=== PATIENT | male | born 1965 | race Caucasian/White ===

== ENCOUNTER 2023-11-28 17:01 | Emergency (ER) | payer OTHER, SELFPAY ==
[2023-11-28 17:01] VITALS: BMI 46.9
[2023-11-28 17:05] VITALS: BP 154/87
[2023-11-28 20:42] LABS: % Basophils 0.4 % (0-2); % Eosinophils 0.3 % (0-6); % Immature Granulocytes 0.4 % (0-0.5); % Lymphocytes 13.3 % (20.5-51.1); % Monocytes 4.2 % (1.7-9.3); % Neutrophils 81.4 % (42.2-75.2); Absolute Lymphocytes 1.4 10^3/uL (1.2-3.4); Absolute Monocytes 0.4 10^3/uL (0.1-0.6); Absolute Neutrophils 8.5 10^3/uL (1.4-6.5); Hematocrit 41.2 % (39.0-52.0); Hemoglobin 13.3 g/dL (13.0-18.0); Mean Corp Hgb Conc. 32.3 g/dL (33.0-37.0); Mean Corpuscular Hgb 22.4 pg (27.0-31.0); Mean Corpuscular Volume 69.5 fL (80.0-94.0); Mean Platelet Volume 10.6 fL (7.4-10.4); Nucleated Red Blood Cells % 0 % (-); Platelet Count 234 10^3/uL (130-400); Red Blood Cell Count 5.93 10^6/uL (4.70-6.10); Red Cell Dist. Width 16.9 % (11.5-14.5); White Blood Cell Count 10.4 10^3/uL (4.8-10.8)
[2023-11-28 20:44] LABS: Urine Albumin Negative (Neg - Trace); Urine Bilirubin Negative (Negative); Urine Character Clear (Clear); Urine Color Yellow; Urine Glucose Negative (Negative); Urine Ketone Negative (Negative); Urine Leukocyte Negative (Negative); Urine Nitrite Negative (Negative); Urine Occult Blood Negative (Negative); Urine Urobilinogen Negative (Neg - 1+)
[2023-11-28 21:00] LABS: ALT (SGPT) 26 U/L (0-50); AST (SGOT) 27 U/L (17-59); Albumin 4.4 g/dl (3.5-5.0); Alkaline Phosphatase 77 U/L (38-126); Blood Urea Nitrogen 31 mg/dl (9-20); Calcium 10.2 mg/dl (8.4-10.2); Carbon Dioxide 26 mmol/L (22-30); Chloride 102 mmol/L (98-107); Estimated Creatinine Clearance 91 ml/min; Glucose 116 mg/dl (70-99); Potassium 3.7 mmol/L (3.5-5.1); Sodium 136 mmol/L (135-145); Total Bilirubin 0.7 mg/dl (0.2-1.3); Total Protein 7.3 g/dl (6.3-8.2); eGFR > 60.00
--- NOTE | 2023-11-28 21:07 | ED.GENMED ---
History of Present Illness
General
Chief Complaint: Back Pain
Source: patient
Exam Limitations: none
Time Seen by Provider: 11/28/23 20:43
Nursing documentation reviewed up to this point in time: agreed with
Travel History
Have you had any contact with someone who has COVID-19?: No
Do you have any symptoms of coronavirus? Fever > 100 degrees, chills, cough, shortness of breath, sore throat, loss of taste or smell, muscle aches, or headache?: No
History of Present Illness
History of Present Illness:
58-year-old male presents emergency department complaining of left-sided low back pain, left testicular pain. Symptoms ongoing for 3 to 4 days. No difficulty urinating.
Past History
Past History
ED Past Medical History: HTN and NIDDM
ED Past Surgical History: Cholecystectomy, Tonsilectomy and Other (Eyes)
Social History
Tobacco: Non-smoker
Alcohol: None
Drug: None
Personal:
Living: with family
Review of Systems
Review of Systems
Allergies reviewed?: Yes
All Other Systems: Not applicable
Constitutional: Reports no symptoms
EENT: Reports no symptoms
Respiratory: Reports no symptoms
Cardiac: Reports no symptoms
ABD/GI: Reports no symptoms
: Reports other (Left testicular pain)
Musculoskeletal: Reports back pain
Skin: Reports no symptoms
Neurological: Reports no symptoms
Endocrine: Reports no symptoms
Hematologic/Lymphatic: Reports no symptoms
Psychiatric: Reports no symptoms
Phy Exam
Physical Exam
Physical Exam:
Physical Exam
General: no apparent distress, not acutely ill
Neck: supple. no meningeal signs. normal posterior pharynx
Heart: s1/s2 regular rate and rhythm, no murmur. equal radial
pulses.
HEENT: Pupils equal round reactive to light, EOMI
Lungs: no acute respiratory distress. clear bilaterally
Abdomen: normal bowel sounds. not tender. no CVAT
: left testicular tenderness
Neuro: alert and oriented. no focal neurological deficits cranial nerves II through XII intact
Skin: no rash
Psychiatric: well kept. interactive and cooperative
Extremities: no edema. no calf tenderness. negative homans. good distal pulses
Course
Orders/Labs/Results
Orders:
Orders
11/28/23 19:03
Lumbar Spine Complete, 4 View [CR Lumbar Spine Comp Min 4 Vw*] Urgent
Comment:
Reason For Exam: pain/injury
11/28/23 20:22
IV Insert/Care/Rem.- Treatment PRN
11/28/23 20:31
Complete Blood Count/With Diff Urgent
Comprehensive Metabolic Panel Urgent
Urinalysis Reflex To Culture Urgent
Date Specimen was Collected: 11/28/23
Time Specimen was Collected: 20:19
11/28/23 21:06
Scrotum US [US Scrotum] Urgent
Comment:
Reason For Exam: left testicle pain
11/28/23 22:54
Ketorolac [Toradol] 15 mg IV NOW STA
Abnormal Lab Results
11/28/23
20:31
MCV 69.5 L fL
(80.0-94.0)
MCH 22.4 L pg
(27.0-31.0)
MCHC 32.3 L g/dL
(33.0-37.0)
RDW 16.9 H %
(11.5-14.5)
MPV 10.6 H fL
(7.4-10.4)
Absolute Neuts (auto) 8.5 H 10^3/uL
(1.4-6.5)
Neutrophils % 81.4 H %
(42.2-75.2)
Lymphocytes % 13.3 L %
(20.5-51.1)
BUN 31 H mg/dl
(9-20)
Glucose 116 H mg/dl
(70-99)
11/28/23 20:31
11/28/23 20:31
Vital Signs
Initial and Last Documented VS:
Initial Vital Signs
Temp Pulse Resp BP Pulse Ox
98.6 F 80 16 154/87 98
11/28/23 17:05 11/28/23 17:05 11/28/23 17:05 11/28/23 17:05 11/28/23 17:05
Last Documented Vital Signs
Temp Pulse Resp BP Pulse Ox
98 F 67 18 132/73 96
11/28/23 21:30 11/28/23 21:30 11/28/23 21:30 11/28/23 21:30 11/28/23 21:30
MDM/Problems Addressed
Differential Diagnosis Includes:
Testicular torsion, cauda equina, sciatica
MDM/Problems Addressed:
58-year-old male with low back pain with left-sided radiculopathy, no signs of cauda equina. Left testicular pain and spermatocele. No signs of torsion. Stable for discharge. Follow-up with primary care and urology.
*Radiology
Radiology exam reviewed: radiology read reviewed (Ultrasound shows left-sided spermatoceles, no torsion, lumbar x-ray shows degenerative disc disease)
*Pulse Oximetry
Patient hypoxic: no
*EKG
Interpreted by ED Provider?: NA
*Re Dye Hand Interpretation
Rate: Re Dye Hand- N/A
*Critical Care Note
Total Time (30-74mins, 75-104mins- exclusive of procedures): Not Applicable
Patient Management
Social determinants of health affecting care: Living situation
Escalation/DeEscalation of care consider admission/obs:
Admit not indicated
ED Attending Note
-
Portions of this chart may have been created with voice recognition software.� Occasional wrong word or��sound alike� substitutions may have occurred due to the inherent limitations of voice recognition software.
Discharge Plan
Departure
Patient Disposition: Home (Routine Discharge)
Date of Disposition: 11/28/23
Time of Disposition: 22:58
Patient with high blood pressure during this ER visit?: Yes
Condition: Good
Discharge Problem:
Low back pain, Bilateral hydrocele, Spermatocele
Instructions: Low Back Pain (DC), Radiculopathy (DC), Hydrocele/Varicocele (DC), BLOOD PRESSURE
Referrals:
Stephon Sam MD [Active] - Call in 1-3 days for appt
Manas Livingston, [Family Provider] - Call in 1-3 days for appt
Kashmir Gardner Jr., MD [Active] - Call in 1-3 days for appt
Interventions
Interventions:
*Risk Screen - Suicide Last Done: 11/28/23 17:05
*General Assessment Last Done: 11/28/23 17:05
*Neglect/Abuse Screening Last Done: 11/28/23 17:05
ED- Fall Risk Assessment Last Done: 11/28/23 21:27
*ED COVID-19 Vaccine History Last Done: 11/28/23 17:05
ED-Musculoskeletal Assessment Last Done: 11/28/23 20:21
Discharge Date and Time
Print Language: BAHAMIAN
[2023-11-28 21:30] VITALS: BP 132/73
[2023-11-28] MEDS: TORADOL 15 MG IV (22:59)
== END 2023-11-28 23:11 | disposition home or self-care (01) ==
LOC: EMR 17:01
PROVIDERS: EMERGENCY PHYSICIAN Emergency Medicine; FAMILY PHYSICIAN Family Medicine
DX: M54.50 Low back pain, unspecified (principal); N50.812 Left testicular pain; N43.41 Spermatocele of epididymis, single; N43.3 Hydrocele, unspecified; M51.36 Other intervertebral disc degeneration, lumbar region; M54.16 Radiculopathy, lumbar region; I10 Essential (primary) hypertension; E11.9 Type 2 diabetes mellitus without complications; Z79.84 Long term (current) use of oral hypoglycemic drugs; Z90.49 Acquired absence of other specified parts of digestive tract; Z88.5 Allergy status to narcotic agent; Z88.8 Allergy status to other drugs, medicaments and biological substances; Z88.6 Allergy status to analgesic agent; Z88.1 Allergy status to other antibiotic agents; Z91.041 Radiographic dye allergy status
CPT/HCPCS: 99284; 96374; 72110; 76870; 80053; 81003; 85025; 93976

== ENCOUNTER → 2024-10-07 13:47 | Outpatient (REF) | payer OTHER, SELFPAY ==
[2024-10-07 13:58] LABS: % Basophils 0.4 % (0-2); % Eosinophils 1.3 % (0-6); % Immature Granulocytes 0.3 % (0-0.5); % Lymphocytes 19.9 % (20.5-51.1); % Neutrophils 74.1 % (42.2-75.2); Absolute Eosinophils 0.1 10^3/uL (0-0.7); Absolute Lymphocytes 1.3 10^3/uL (1.2-3.4); Absolute Monocytes 0.3 10^3/uL (0.1-0.6); Hematocrit 43.5 % (39.0-52.0); Hemoglobin 14.2 g/dL (13.0-18.0); Mean Corp Hgb Conc. 32.6 g/dL (33.0-37.0); Mean Corpuscular Hgb 23.3 pg (27.0-31.0); Mean Corpuscular Volume 71.3 fL (80.0-94.0); Mean Platelet Volume 10.4 fL (7.4-10.4); Platelet Count 173 10^3/uL (130-400); Red Cell Dist. Width 20.3 % (11.5-14.5); White Blood Cell Count 6.7 10^3/uL (4.8-10.8)
== END ==
LOC: OIDL 13:47
PROVIDERS: ATTENDING PHYSICIAN Internal Medicine Hematology & Oncology
DX: D50.9 Iron deficiency anemia, unspecified (principal)
CPT/HCPCS: 85025